=== PATIENT | female | born 1960 | race Caucasian/White ===

== ENCOUNTER → 2018-03-27 | Outpatient (CLI) | payer OTHER ==
[~2018-03-27] MED LIST: ANTIVERT25 MG PO; ASPIRIN81 MG PO; ATIVAN1 MG PO; ATORVASTATIN CA20 MG PO; CARAFATE1 GM PO; DEXILANT30 MG PO; DICYCLOMINE HCL10 MG PO; LIBRAX CAPSULE1 EACH PO; PHENERGAN PO; PROBIOTIC & AC1 EACH PO; RANITIDINE HCL300 M1 PO; TYLENOL PO; VITAMIN B-12 INJ IM; VITAMIN D1000 UNIT PO; ZANTAC150 MG PO
--- NOTE | 2018-03-27 10:52 | Diagnostic Imaging Report ---
PROCEDURE:US GALLBLADDER COMPARISON:None. INDICATIONS:RUQ Pain TECHNIQUE: Torres-scale and color Doppler transverse and longitudinal images of the right upper quadrant of the abdomen were obtained. FINDINGS: Liver: Measures 16.4 cm in right mid-clavicular line. Increased echogenicity. No masses. Main portal vein: Measures 1.0 cm with normal hepatopetal flow. Gallbladder: No stones or wall thickening. Common Bile Duct: Measures 0.3 cm Sonographic Xavier's sign: Negative Right kidney: Measures 10.3 x 3.9 x 3.6 cm. Normal echogenicity. No solid masses or hydronephrosis. Pancreas: Limited visualization Inferior vena cava: Limited visualization Aorta: Limited visualization Ascites: None in the right upper quadrant of the abdomen. CONCLUSION: Increased echogenicity within the liver compatible with steatosis. Kayden Gold D.O. Dictated by: Kayden Gold D.O. on 03/27/2018 at 9:08 Electronically approved by: Kayden Gold D.O. on 03/27/2018 at 9:08
--- NOTE | 2018-03-27 21:55 | Diagnostic Imaging Report ---
Hepatobiliary Scan with Gallbladder Ejection Fraction Clinical information: 58 F with diverticulitis and ulcerative colitis now with RUQ abdominal pain Report: Following intravenous administration of 7 millicuries of Tc-99m mebrofenin, dynamic images of the abdomen in the anterior projection were obtained through 36 minutes. Sincalide (CCK analog) 1.8 micrograms was administered intravenously over 30 minutes with additional imaging for determination of gallbladder ejection fraction. Perfusion to the liver is normal. Extraction of tracer from the blood pool by the liver parenchyma is normal. Tracer is seen promptly within the biliary tract. The gallbladder begins to fill by 8 minutes post-injection of tracer and fills adequately. Tracer is seen in the small bowel during the sincalide infusion. The gallbladder ejection fraction with administration of sincalide is 44% (normal greater than 40%). Impression: 1. Filling of the gallbladder excludes the diagnosis of acute cystic duct obstruction/acute cholecystitis. 2. Normal gallbladder ejection fraction of 44% does not support the clinical diagnosis of chronic cholecystitis/gallbladder dyskinesia. Signed by: Dr. Nuzhat Mendieta M.D. on 03/27/2018 9:52 PM
== END ==
LOC: US 08:11
PROVIDERS: ATTEND Internal Medicine Gastroenterology
DX: R10.11 Right upper quadrant pain (principal)
CPT/HCPCS: 76705; 78227; A9537

== ENCOUNTER → 2018-07-26 | Day surgery (SDC) | payer OTHER ==
[2018-07-22 13:28] LABS: BASOPHILS # (AUTO) 0.1 (0.0-0.1); BASOPHILS % 0.4 % (0.0-1.0); EOSINOPHILS # (AUTO) 0.3 (0.0-0.4); EOSINOPHILS % 1.9 % (0.0-6.0); HEMATOCRIT 51.8 % (34.2-44.1); HEMOGLOBIN 16.7 g/dL (12.0-16.0); LYMPHOCYTES # (AUTO) 6.4 (1.0-3.2); LYMPHOCYTES % 39.6 % (18.0-39.1); MEAN CORPUSCULAR HEMOGLOBIN 31.5 pg (28-32); MEAN CORPUSCULAR HGB CONC 32.2 g/dL (31-35); MEAN CORPUSCULAR VOLUME 97.6 fL (81-99); MONOCYTES # (AUTO) 1.2 (0.2-0.8); MONOCYTES % 7.6 % (4.4-11.3); NEUTROPHILS # (AUTO) 8.1 (2.1-6.9); NEUTROPHILS % 50.3 % (38.7-80.0); PLATELET COUNT 325 x10e3/uL (140-360); RED BLOOD COUNT 5.31 x10e6/uL (3.6-5.1); RED CELL DISTRIBUTION WIDTH 13.3 % (11.7-14.4)
[2018-07-22 14:36] LABS: EOSINOPHILS % (MANUAL) 2 % (0-7); LYMPHOCYTES % (MANUAL) 29 % (19-48); MONOCYTES % (MANUAL) 5 % (3.4-9.0); NEUTROPHILS % (MANUAL) 53 % (40-74)
[2018-07-22 14:39] LABS: PLATELET ESTIMATE ADEQUATE; PLATELET MORPHOLOGY COMMENT NORMAL; RBC MORPHOLOGY COMMENT NORMAL
[~2018-07-26] MED LIST changes: +CARAFATE1 GM/10 ML PO; +FENTANYL CITRATE/PF 100MCG/2 ML INJ ONE; +FRANKINSENSE; +LIDOCAINE HCL 2% LOCAL INJ 5 ML SDV VIAL INJ ONE; +MIDAZOLAM HCL 2 MG/2 ML VIAL ONE; +PROPOFOL IV EMULSION 10 MG/ML 20 ML VIAL ONE; +VIT B12 PO; +VIT D3
[2018-07-26 12:42] LABS: BASOPHILS # (AUTO) 0.1 (0.0-0.1); BASOPHILS % 0.5 % (0.0-1.0); EOSINOPHILS # (AUTO) 0.3 (0.0-0.4); EOSINOPHILS % 2.3 % (0.0-6.0); HEMATOCRIT 46.4 % (34.2-44.1); HEMOGLOBIN 15.2 g/dL (12.0-16.0); LYMPHOCYTES # (AUTO) 5.4 (1.0-3.2); LYMPHOCYTES % 39.6 % (18.0-39.1); MEAN CORPUSCULAR HGB CONC 32.8 g/dL (31-35); MEAN CORPUSCULAR VOLUME 94.7 fL (81-99); MONOCYTES % 7.6 % (4.4-11.3); NEUTROPHILS # (AUTO) 6.8 (2.1-6.9); NEUTROPHILS % 49.8 % (38.7-80.0); PLATELET COUNT 226 x10e3/uL (140-360); RED CELL DISTRIBUTION WIDTH 13.3 % (11.7-14.4)
[2018-07-26 13:31] LABS: EOSINOPHILS % (MANUAL) 3 % (0-7); LYMPHOCYTES % (MANUAL) 40 % (19-48); MONOCYTES % (MANUAL) 8 % (3.4-9.0); NEUTROPHILS % (MANUAL) 49 % (40-74); PLATELET ESTIMATE ADEQUATE; PLATELET MORPHOLOGY COMMENT NORMAL; RBC MORPHOLOGY COMMENT NORMAL
--- NOTE | 2018-07-26 23:23 | Operative Report ---
DATE OF PROCEDURE: July 26, 2018 REFERRING PHYSICIAN: Dr. Jose Tsai. PROCEDURE PERFORMED: Esophagogastroduodenoscopy with esophageal dilatation and biopsies. INDICATIONS FOR ESOPHAGOGASTRODUODENOSCOPY: Dysphagia. MEDICATION: Patient was done under MAC. Please see anesthesiologist's note. PROCEDURE: With the patient in left lateral decubitus position, a flexible fiberoptic Olympus gastroscope was introduced into the esophagus under direct visualization without any difficulty. There was some patchy erythema noted in distal esophagus. There was some patchy nodularity noted at the GE junction that was biopsied. Esophagus was then dilated to size 52-Bolivian Wilson. The scope was then advanced with ease into the stomach traversing a small sliding hiatal hernia. Mucosa overlying the antrum and the body revealed some diffuse erythema and moderate edema and biopsies were obtained and sent to stain for H. pylori. Pylorus appeared to be of normal contour and shape, was intubated with ease and the scope was advanced all the way to the 2nd portion of the duodenum. Biopsies were obtained from the proximal 2nd portion and the duodenal bulb to rule out sprue. The scope was then withdrawn back into the stomach and retroflexed and the mucosa overlying the fundus and cardia appeared to be within normal limits. The scope was then straightened out and was subsequently withdrawn. Patient tolerated the procedure well. IMPRESSION 1. Distal esophagitis, mild. 2. Patchy nodularity gastroesophageal junction, biopsied. 3. Esophagus dilated to size 52-Bolivian Wilson. 4. Small sliding hiatal hernia. 5. Gastritis, biopsied. Biopsies sent to stain for Helicobacter pylori. 6. Rule out sprue. PLAN: Follow up histology. Increase Dexilant to 60 mg 1 p.o. a.c. b.i.d. Job#: [id number] GAU cc:DR. JOSE TSAI
--- OUTSIDE RECORDS SUMMARY | 2018-07-28 15:10 | XMS REPORT ---
Author [facility] Address Unknown Phone Unavailable Care Team Providers Care Raw Scales Operator Name Role Phone JUAN MANUEL VYAS Unavailable Unavailable JOSE TSAI Unavailable Unavailable Payers Payer Name Policy Type Policy Number Effective Date Expiration Date Problems This patient has no known problems. Allergies, Adverse Reactions, Alerts Allergy Name Allergy Type Status Severity Reaction(s) Onset Date Inactive Date Treating Clinician Comments butorphanol tartrate DA Active AR 2016-04-20 00:00:00 metaproterenol sulfate DA Active AR 2016-04-20 00:00:00 metoclopramide HCl DA Active 2016-04-20 00:00:00 codeine DA Active AR 2016-04-20 00:00:00 naproxen DA Active AR 2016-04-20 00:00:00 Medications This patient has no known medications. Results Test Description Test Time Test Comments Text Results Atomic Results Result Comments HEPTOBILIARY W PHARM 2018-03-27 21:50:00 [facility] [address] [place], [place] [address] Patient Name: GEOVANI BEARD MR #: [id number] : 1960 Age/Sex: 57/F Req #: [id number] [facility] Physician: Ordered by: JUAN MANUEL VYAS MD Report #: [id number] Location: Room/Bed: Procedure: [id number] NM/HEPTOBILIARY W PHARM Exam Date: 03/27/18 Exam Time: 0845 REPORT STATUS: Signed Hepatobiliary Scan with Gallbladder Ejection Fraction Clinical information: 58 F with diverticulitis and ulcerative colitis now with RUQ abdominal pain Report: Following intravenous administration of 7 millicuries of Tc-99m mebrofenin, dynamic images of the abdomen in the anterior projection were obtained through 36 minutes. Sincalide (CCK analog) 1.8 micrograms was administered intravenously over 30 minutes with additional imaging for determination of gallbladder ejection fraction. Perfusion to the liver is normal. Extraction of tracer from the blood pool by the liver parenchyma is normal. Tracer is seen promptly within the biliary tract. The gallbladder begins to fill by 8 minutes post-injection of tracer and fills adequately. Tracer is seen in the small bowel during the sincalide infusion. The gallbladder ejection fraction with administration of sincalide is 44% (normal greater than 40%). Impression: 1. Filling of the gallbladder excludes the diagnosis of acute cystic duct obstruction/acute cholecystitis. 2. Normal gallbladder ejection fraction of 44% does not support the clinical diagnosis of chronic cholecystitis/gallbladder dyskinesia. Signed by: Dr. Lyla Mendieta M.D. on 03/27/2018 9:52 PM Dictated By: LYLA MENDIETA MD 51 Transcribed By: RAMONITA on 03/27/182151 COPY TO: JUAN MANUEL VYAS MD GALLBLADDER 2018-03-27 09:08:00 [place] [address] Patient Name: GEOVANI BEARD MR #: [id number] : 1960 Age/Sex: 57/F Req #: [id number] Adm Physician: Ordered by: JUAN MANUEL VYAS MD Report #: [id number] Location: Room/Bed: Procedure: [id number] US/US GALLBLADDER Exam Date: 03/27/18 Exam Time: 0839 REPORT STATUS: Signed PROCEDURE: US GALLBLADDER COMPARISON: None. INDICATIONS: RUQ Pain TECHNIQUE: Torres-scale and color Doppler transverse and longitudinal images of the right upper quadrant of the abdomen were obtained. FINDINGS: Liver: Measures 16.4 cm in right mid-clavicular line. Increased echogenicity. No masses. Main portal vein: Measures 1.0 cm with normal hepatopetal flow. Gallbladder: No stones or wall thickening. Common Bile Duct: Measures 0.3 cm Sonographic Xavier's sign: Negative Right kidney: Measures 10.3 x 3.9 x 3.6 cm. Normal echogenicity. No solid masses or hydronephrosis. Pancreas: Limited visualization Inferior vena cava: Limited visualization Aorta: Limited visualization Ascites: None in the right upper quadrant of the abdomen. CONCLUSION: Increased echogenicity within the liver compatible with steatosis. Be oGld D.O. Dictated by: Be Gold D.O. on 03/27/2018 at 9:08 Electronically approved by: Be Gold D.O. on 03/27/2018 at 9:08 Dictated By: BE GOLD DO 09 Transcribed By: SEN on 03/27/18 09 COPY TO: JUAN MANUEL VYAS MD CERVICAL SPINE 4 OR 5 VIEWS [place] [address] Patient Name: GEOVANI BEARD MR #: [id number] : 1960 Age/Sex: 57/F Req #: [id number] Adm Physician: Ordered by: QUIN BANUELOS, JOSE Wang MD Report #: [id number] Location: RAD Room/Bed: Procedure: [id number] DX/CERVICAL SPINE 4 OR 5 VIEWS Exam Date: 05/29/17 Exam Time: 1130 REPORT STATUS: Signed PROCEDURE: C-SPINE COMPLETE COMPARISON: None. INDICATIONS: CERVICAL SPINE PAIN FINDINGS: The cervical spine is visualized from the skull base to the bottom of C6 on the lateral radiograph, with suboptimal visualization of the cervicothoracic junction. No acute, displaced fracture or subluxation. Soft tissue, ligamentous, and spinal cord abnormalities cannot be excluded on the basis of plain radiography. Mild degenerative disc changes at C3-4, C4-5, and C5-6. Neural foramina are widely patent as seen on the oblique radiographs. Mild degenerative changes of the atlantoaxial articulation which is otherwise intact. Prevertebral soft tissues are of normal thickness. CONCLUSION: Suboptimal examination with nonvisualization of the cervicothoracic junction. Mild multilevel degenerative disc changes of the cervical spine. Dictated by: Maynor Gamez M.D. on 05/29/2017 at 12:45 Electronically approved by: Maynor Gamez M.D. on 05/29/2017 at 12:45 Dictated By: MAYNOR GAMEZ MD 1245 Transcribed By: SEN on 05/29/17 1245 COPY TO: JOSE TSAI
== END | disposition home or self-care (01) ==
LOC: OR 11:56
PROVIDERS: ATTEND Internal Medicine Gastroenterology
DX: K21.0 Gastro-esophageal reflux disease with esophagitis (principal); K29.50 Unspecified chronic gastritis without bleeding; K29.60 Other gastritis without bleeding; K31.89 Other diseases of stomach and duodenum; K44.9 Diaphragmatic hernia without obstruction or gangrene; R19.7 Diarrhea, unspecified; G47.33 Obstructive sleep apnea (adult) (pediatric); E55.9 Vitamin D deficiency, unspecified; E53.8 Deficiency of other specified B group vitamins; F17.210 Nicotine dependence, cigarettes, uncomplicated; Z88.6 Allergy status to analgesic agent; Z88.8 Allergy status to other drugs, medicaments and biological substances; Z01.810 Encounter for preprocedural cardiovascular examination; Z01.812 Encounter for preprocedural laboratory examination; Z79.82 Long term (current) use of aspirin; Z68.31 Body mass index [BMI] 31.0-31.9, adult
CPT/HCPCS: 36415 ×2; 43239; 43450; 82607; 85025 ×2; 93005; J2001; J2250; J2704

== ENCOUNTER 2018-10-22 16:23 | Observation (INO) | payer OTHER ==
[~2018-10-22] VITALS: Ht 167.6 cm; Wt 86.2 kg
[~2018-10-22 16:23] MED LIST changes: -FENTANYL CITRATE/PF 100MCG/2 ML INJ ONE; -LIDOCAINE HCL 2% LOCAL INJ 5 ML SDV VIAL INJ ONE; -MIDAZOLAM HCL 2 MG/2 ML VIAL ONE; -PROPOFOL IV EMULSION 10 MG/ML 20 ML VIAL ONE; -VIT B12 PO; +VIT B12 SQ; -VIT D3; +VIT D3 PO
--- NOTE | 2018-10-22 16:45 | NUR ---
RECEIVED PT AMBULATORY FROM [facility] WITH STEADY GAIT. PATIENT GOWNED AND PLACED ON MONITOR
[2018-10-22] MEDS ORDERED: ACETAMINOPHEN/CODEINE ELIX 120-12 MG/5 ML UDC PO ONE ×2 (17:00→22:00)
[2018-10-22 17:06] LABS: CLARITY,URINE SL CLOUDY (CLEAR); COLOR,URINE YELLOW (YELLOW)
[2018-10-22 17:07] LABS: BILIRUBIN,URINE NEGATIVE (NEGATIVE); KETONES,URINE NEGATIVE (NEGATIVE); LEUKOCYTE ESTERASE ,URINE 2+ (NEGATIVE); NITRITE,URINE POSITIVE (NEGATIVE); PROTEIN,URINE DIPSTICK NEGATIVE (NEGATIVE); URINE UROBILINOGEN 0.2 mg/dL (0.2 - 1)
[2018-10-22 17:17] LABS: BACTERIA,URINE MANY /HPF; WBC,URINE (MAN) 21-50 /HPF (0-5)
[2018-10-22] MEDS ORDERED: CEFTRIAXONE SOD 1 GM VIAL IV ONE (17:30)
[2018-10-22 18:21] LABS: BASOPHILS # (AUTO) 0.1 (0.0-0.1); BASOPHILS % 0.3 % (0.0-1.0); EOSINOPHILS # (AUTO) 0.3 (0.0-0.4); EOSINOPHILS % 1.8 % (0.0-6.0); HEMATOCRIT 45.2 % (34.2-44.1); HEMOGLOBIN 15.1 g/dL (12.0-16.0); LYMPHOCYTES # (AUTO) 5.7 (1.0-3.2); LYMPHOCYTES % 34.5 % (18.0-39.1); MEAN CORPUSCULAR HEMOGLOBIN 31.7 pg (28-32); MEAN CORPUSCULAR HGB CONC 33.4 g/dL (31-35); MEAN CORPUSCULAR VOLUME 94.8 fL (81-99); MONOCYTES # (AUTO) 1.1 (0.2-0.8); MONOCYTES % 6.9 % (4.4-11.3); NEUTROPHILS # (AUTO) 9.4 (2.1-6.9); NEUTROPHILS % 56.3 % (38.7-80.0); PLATELET COUNT 166 x10e3/uL (140-360); RED BLOOD COUNT 4.77 x10e6/uL (3.6-5.1); RED CELL DISTRIBUTION WIDTH 13.2 % (11.7-14.4)
[2018-10-22 18:43] LABS: ALANINE AMINOTRANSFERASE 12 IU/L (0-55); ALBUMIN 3.7 g/dL (3.5-5.0); ALBUMIN/GLOBULIN RATIO 1.1 (0.8-2.0); ALKALINE PHOSPHATASE 102 IU/L (40-150); ANION GAP 17.6 mmol/L (8-16); BLOOD UREA NITROGEN 7 mg/dL (7-26); BUN/CREATININE RATIO 9 (6-25); CALCIUM 9.3 mg/dL (8.4-10.2); CARBON DIOXIDE 21 mmol/L (22-29); CHLORIDE 103 mmol/L (98-107); CREATININE, SERUM 0.77 mg/dL (0.57-1.11); EST GLOMERULAR FILTRATION RATE > 60 ML/MIN (60-); GLUCOSE 99 mg/dL (74-118); POTASSIUM 4.6 mmol/L (3.5-5.1); SODIUM 137 mmol/L (136-145)
[2018-10-22 20:59] LABS: EOSINOPHILS % (MANUAL) 1 % (0-7); LYMPHOCYTES % (MANUAL) 28 % (19-48); MONOCYTES % (MANUAL) 7 % (3.4-9.0); NEUTROPHILS % (MANUAL) 54 % (40-74); PLATELET ESTIMATE ADEQUATE; PLATELET MORPHOLOGY COMMENT MOD EDTA CLUMPING; RBC MORPHOLOGY COMMENT NORMAL; SMUDGE CELLS FEW
--- NOTE | 2018-10-22 21:28 | Diagnostic Imaging Report ---
History: Difficulty swallowing. Comparison studies: None Technique: Axial, coronal and sagittal images from the skull base to the thoracic inlet. Coronal and sagittal images reconstructed from the axial data. Dose modulation, iterative reconstruction, and/or weight based adjustment of the mA/kV was utilized to reduce the radiation dose to as low as reasonably achievable. Intravenous contrast: 100 cc of Isovue 370. Findings: Soft tissues: Large bridging anterior vertebral osteophyte at C4-C5, C5-C6 and C6-C7 results in mass effect on the prevertebral soft tissues and aerodigestive tract at this level (best seen in image 65, series 3; image 50, series 3). Minimal narrowing of the airway at level C4-C5, otherwise airway is patent. There is a 6 mm pocket of air outpouching in the right dorsal lateral aspect of the trachea may represent a diverticulum. Lymph nodes: No radiographically significant adenopathy. Vessels: Arteries and veins are patent. Glands : Bilateral submandibular glands are normal in size and symmetric. No masses. Thyroid: Heterogeneous nodule approximately measures 1.9 x 1.4 x 1.9 cm (SAT) in the isthmus of the thyroid gland. Parotid: 9 mm well-circumscribed rounded homogeneously hyperdense lesion in the superficial lobe of left parotid gland may represent intraparotid lymph node or soft tissue neoplasm like pleomorphic adenoma. Orbits: No abnormalities. Paranasal sinuses: Clear. Temporal bones: No abnormalities. Skull base and facial bones: Intact. Cervical spine: Multilevel degenerative disc disease from C3-C4 to C7-T1, particularly with large anterior vertebral bridging osteophyte at level C4-C5, C5-C6 and C6-C7. C3-C4: Posterior disc osteophyte complex without significant canal stenosis. Mild left foraminal stenosis due to facet and uncovertebral arthrosis. Incidental findin mm calcified nodule in left lung parenchyma. 3 mm calcified left hilar node. IMPRESSION: 1. Large bridging anterior vertebral osteophyte at C4-C5, C5-C6 and C6-C7 results in mass effect on the prevertebral soft tissues and aerodigestive tract. 2. A 1.9 cm heterogeneous nodule in the isthmus of the thyroid gland. Consider follow-up with nonemergent thyroid ultrasonogram, if previous workup has not been done. 3. Incidental 9 mm nodular lesion in left parotid gland may represent intraparotid lymph node or soft tissue neoplasm like pleomorphic adenoma. 4. Cervical spondylosis as detailed above. Signed by: Dr. Anitha Campbell M.D. on 10/22/2018 9:25 PM
[2018-10-22] MEDS: PHENAZOPYRIDINE HCL 100 MG TAB PO NR ×2 (21:43→22:21)
[2018-10-22] MEDS ORDERED: ACETAMINOPHEN/CODEINE ELIX 120-12 MG/5 ML UDC NG ONE (22:00)
[2018-10-22] MEDS ORDERED: GABAPENTIN100 MG PO (22:28)
[2018-10-22] MEDS ORDERED: ACETAMINOPHEN/CODEINE ELIX 120-12 MG/5 ML UDC PO PRN (23:00)
[2018-10-22 23:29] VITALS: BP 136/78
[2018-10-22 23:56] VITALS: BP 136/78
[2018-10-23] VITALS (7 sets, daily range): BP systolic 106–133; BP diastolic 51–61
[2018-10-23] MEDS ORDERED: NICOTINE 14 MG/EA PATCH TOP ONE
[2018-10-23] MEDS ORDERED: IOPAMIDOL 370 MG/ML 200 ML INFUS..BTL INJ ONE (06:03)
[2018-10-23] MEDS ORDERED: SODIUM CHLORIDE 0.9% 50ML 50 ML ONE (06:03)
[2018-10-23] MEDS: NICOTINE 14 MG/EA PATCH TOP SCH (09:16)
--- NOTE | 2018-10-23 10:16 | Diagnostic Imaging Report ---
Examination: Barium swallow Technique: Effervescent crystals and barium were ingested by mouth and multiple fluoroscopic spot images of the esophagus and stomach were obtained. Comparison examination: CT 10/22/2018; barium swallow from 2012 Fluoroscopy time: 1.2 minutes Air Kerma: 44.3 mGy Findings: Informed sinuses and valleculae are symmetric. Normal esophageal mucosa, peristalsis, and distensibility. Gastroesophageal junction: Small sliding hiatal hernia is again noted. No gastroesophageal reflux. Proximal stomach: Unremarkable. Impression: Small sliding-type hiatal hernia. Otherwise unremarkable barium swallow. Signed by: Dr. Renzo Rose M.D. on 10/23/2018 10:13 AM
--- NOTE | 2018-10-23 13:11 | Diagnostic Imaging Report ---
LEFT FOOT - 3 Images HISTORY: Pain, rule out foreign body, possible glass COMPARISON: None available. FINDINGS: Bones: Diffusely decreased mineralization of the osseous structures limits bone detail. No acute displaced fracture. Moderate dorsal and small plantar calcaneal enthesophytes. Joints: Mild hallux valgus deformity. Mild degenerative changes of the first metatarsophalangeal joint. Soft tissues: No radiopaque foreign body. IMPRESSION: 1. No acute radiographic abnormality. 2. Specifically, no radiopaque foreign body. Signed by: Dr. Tien Teague D.O., M.M.M. on 10/23/2018 1:07 PM
--- NOTE | 2018-10-23 15:01 | NUR ---
CASE MANAGEMENT ASSESSMENT Regulatory Services Consultant to bedside to discuss plan of care with patient/family. CM/SW role and care transitions discussed. Anticipated discharge plan discussed along with duration of care. CM/SW discussed patients right to make decisions in care. CM/SW work hours given. Patient lives: with Darrel Admit/Transfer: thru ED Hospital/ER visits since last admit: last hospitalization in May 2018 at [facility]; 0 ED visits since then POA/Emergency contact: Darrel Horan [phone] Current/Previous Home Health: none PCP/Follow-up Care: Dr. Mendez Pinedo; pt was advised to follow up with a physician within 7 days of discharge. Current/Previous DME: has walker, rollator, shower chair, cane, CPAP Medications (referring to index hospitalization or the first time you were in the hospital) a. Were changes made in your medications when you were in the hospital on [date of index hospitalization]? no b. Did you understand the changes? n/a c. Were you able to obtain your new medications right away? n/a d. Were you able to take your medications like the doctor wanted you to? n/a e. Did the hospital give you an accurate, easy to understand list of medications when you left? n/a Scale of 1-10 how comfortable does patient feel with disease management in outpatient settin Other Services: previously did outpatient therapy at [facility] x 8 visits Employment Status: unemployed Areas of Concerns: weakness, loss of balance at times, dysphagia Referral Needs: may need home health Education Needs: medical management IMM/EGAN given and signed (if applicable): n/a Goal for discharge: home CM/SW left business card at the bedside with contact information. Name and number was also written on the patients whiteboard. Patient verbalized understanding of discussion. CM will follow-up with ongoing discharge and transition of care needs.
--- NOTE | 2018-10-23 16:11 | Diagnostic Imaging Report ---
EXAM: Modified barium swallow with Speech Pathologist INDICATION: ^dysphagia ^20181023 ^1220 COMPARISON: None available. RADIATION DOSE: Fluoroscopy Time: 1.3 min Air Kerma (AK) value has been reviewed. It is below the limits set by the Radiation Protocol Committee (RPC) committee. FINDINGS: See impression IMPRESSION: No evidence of penetration or aspiration. Please see speech pathology report for detailed description and recommendations. Signed by: Dr. Renzo Rose M.D. on 10/23/2018 4:08 PM
[2018-10-23] MEDS ORDERED: CEFTRIAXONE SOD 1 GM/NS 50 ML 50 ML IV SCH (20:00)
[2018-10-23] MEDS ORDERED: SODIUM CHLORIDE 0.9% 250ML 250 ML ONE (21:09)
--- NOTE | 2018-10-23 21:26 | Consultation ---
DATE OF CONSULTATION: October 23, 2018 HOSPITAL CONSULTATION HISTORY OF PRESENT ILLNESS: I was kindly asked to see this 58-year-old woman for evaluation of dysphagia. She has a 4- to 5-year history of difficulty swallowing, which has been evaluated by Dr. Nilo Buck in the past and has been treated with cervical esophageal dilation which she reports is required approximately every year to every year and a half. She recently developed a tooth cavity which was treated by her dentist along with oral cavity deep cleaning. She subsequently developed an abscess, which was drained by her dentist and treated with Peridex mouthwash and PO antibiotics. She reports that in the 2 weeks since starting the Peridex mouthwash that she has had a dramatic increase in her level of dysphagia. She stopped using the Peridex, but had persistent symptoms of throat burning and burning in her tongue. She reports she swallows liquids without difficulty, but has difficulty with foods that has consistency of mashed potatoes and reports that she has a sensation that food getting stuck and points to the level of the larynx as the etiology. In addition, for foods like meats, she must first cut them into tiny pieces, then chew them well before she was able to swallow them. In addition, she has a history of vertigo, which has been evaluated by her neurologist and felt to be benign positional vertigo. She also has a history of hearing loss and uses hearing aids and has a history of ear fullness which is worse in the right ear. Over the last few weeks, she has had an increase in the amount of nasal and sinus secretions that has excessive phlegm on the back of her throat. PAST MEDICAL HISTORY AND PAST SURGICAL HISTORY: Reviewed in detail in the chart and is pertinent for history of inflammatory bowel disease. Workup since hospitalization included CT soft tissue of the neck which demonstrated a large bridging anterior cervical osteophyte at C4-5 and C5-6 and C6-7, which resulted in a mass effect on the prevertebral soft tissue and aerodigestive tract at this level. She was also noted to have a thyroid nodule in the thyroid isthmus which was 1.9 x 1.4 x 1.9 cm and a 9 mm circumcised hyperdense lesion in the superficial lobe of the left parotid gland. PHYSICAL EXAMINATION: The left pinna and external auditory canal were normal. The left tympanic membrane was hypomobile and mildly retracted. The right pinna and external auditory canal were normal. The right tympanic membrane was retracted and hypomobile. Intranasal examination showed an S-shaped nasal septal deviation with edema of the nasal mucosa and a moderate amount of thick mucus within the nasal cavity. Oral cavity examination showed 2+ to 3+ oral candidiasis on the dorsum of the tongue and a moderate postnasal drainage. There was no palpable cervical adenopathy. Specifically, the parotid mass and thyroid isthmus mass were not appreciated on physical examination. On fiberoptic diagnostic rhinoscopy, she had thick mucus within the nasal cavity. There was a nasal septal spur towards the left which was impinging on the left middle turbinate, but there was no active infection noted within the ostiomeatal complex. The nasopharynx had mild to moderate thick mucus. The base of tongue had significant lymphoid hyperplasia. She had a long soft palate and uvula which touched the base of her tongue. She had candidiasis on the base of tongue. She had moderate posterior commissure hypertrophy and erythema of the posterior commissure of the larynx. There was normal vocal cord motion. There were no masses. ASSESSMENT: 1. Dysphagia which is probably secondary to the osteophytes of her cervical spine as her baseline etiology for the last 5 years of dysphasia superimposed with oral candidiasis secondary to the antibiotics given for treatment of her dental abscess and the Peridex. 2. Vertigo, possibly of peripheral origin. 3. Thyroid mass. 4. Parotid mass. 5. Obstructive sleep apnea (patient is currently on continuous positive airway pressure). PLAN: 1. Diflucan 200 mg p.o. daily. 2. Nystatin swish, gargle and swallow q.4h. while awake. 3. Outpatient evaluation for thyroid and parotid mass .4. Outpatient evaluation for vertigo. 5. Cleared for discharge from otolaryngology standpoint. Thank you very much. Job#: [id number] DR ZAYAS
[2018-10-23] MEDS: NYSTATIN SUSPENSION 5 ML UDC PO SCH (23:59)
[2018-10-24] VITALS: BP 129/58
[2018-10-24 05:00] VITALS: BP 99/45
[2018-10-24 05:23] LABS: BASOPHILS % 0.4 % (0.0-1.0); EOSINOPHILS # (AUTO) 0.4 (0.0-0.4); EOSINOPHILS % 3.5 % (0.0-6.0); HEMATOCRIT 43.3 % (34.2-44.1); HEMOGLOBIN 14.4 g/dL (12.0-16.0); LYMPHOCYTES # (AUTO) 5.4 (1.0-3.2); LYMPHOCYTES % 50.8 % (18.0-39.1); MEAN CORPUSCULAR HEMOGLOBIN 31.2 pg (28-32); MEAN CORPUSCULAR HGB CONC 33.3 g/dL (31-35); MEAN CORPUSCULAR VOLUME 93.9 fL (81-99); MONOCYTES # (AUTO) 0.9 (0.2-0.8); MONOCYTES % 8.5 % (4.4-11.3); NEUTROPHILS # (AUTO) 3.9 (2.1-6.9); NEUTROPHILS % 36.6 % (38.7-80.0); PLATELET COUNT 285 x10e3/uL (140-360); RED BLOOD COUNT 4.61 x10e6/uL (3.6-5.1); RED CELL DISTRIBUTION WIDTH 13.2 % (11.7-14.4)
[2018-10-24 05:52] LABS: ANION GAP 14.8 mmol/L (8-16); BLOOD UREA NITROGEN 8 mg/dL (7-26); BUN/CREATININE RATIO 12 (6-25); CALCIUM 9.1 mg/dL (8.4-10.2); CARBON DIOXIDE 23 mmol/L (22-29); CHLORIDE 108 mmol/L (98-107); CREATININE, SERUM 0.67 mg/dL (0.57-1.11); EST GLOMERULAR FILTRATION RATE > 60 ML/MIN (60-); GLUCOSE 105 mg/dL (74-118); POTASSIUM 3.8 mmol/L (3.5-5.1); SODIUM 142 mmol/L (136-145)
[2018-10-24] MEDS: NYSTATIN SUSPENSION 5 ML UDC PO SCH ×2 (06:05→12:30)
[2018-10-24 06:51] LABS: EOSINOPHILS % (MANUAL) 1 % (0-7); LYMPHOCYTES % (MANUAL) 45 % (19-48); MONOCYTES % (MANUAL) 7 % (3.4-9.0); NEUTROPHILS % (MANUAL) 40 % (40-74); PLATELET ESTIMATE ADEQUATE; PLATELET MORPHOLOGY COMMENT NORMAL; RBC MORPHOLOGY COMMENT NORMAL
[2018-10-24 08:13] VITALS: BP 117/53
[2018-10-24] MEDS ORDERED: FLUCONAZOLE 100 MG TAB PO SCH (09:00)
[2018-10-24 09:40] VITALS: BP 117/53
--- NOTE | 2018-10-24 09:40 | NUR ---
Pt received resting in bed. Alert and oriented x4. Oriented to staff and surroundings. Encouraged to press call [employer]onez if help needed. All meds given as ordered. Call [employer]onez within reach. Emotional support given. Will monitor
[2018-10-24] MEDS: NICOTINE 14 MG/EA PATCH TOP SCH (09:41)
[2018-10-24 12:00] VITALS: BP 113/55
[2018-10-24] MEDS ORDERED: MACRODANTIN100 MG PO (12:38)
[2018-10-24] MEDS ORDERED: DIFLUCAN200 MG PO (12:38)
--- NOTE | 2018-10-24 12:47 | Discharge Summary ---
PRIMARY CARE DOCTOR: Dr. Jose Pinedo. FINAL DIAGNOSIS: Dysphagia, likely due to candidal esophagitis. SECONDARY DIAGNOSES 1. Large bridging anterior vertebral osteophyte, C4 through C7, resulting in mass effect on the prevertebral soft tissues and aerodigestive tract. 2. Thyroid mass. 3. Left parotid mass. 4. Gram-negative rods urinary tract infection. CONSULTANTS: Dr. Ibarra, ENT. PROCEDURES/STUDIES PERFORMED 1. Laryngoscope. 2. A modified barium swallow study. 3. Neck CT. HISTORY: Per H&P. HOSPITAL COURSE: Patient was admitted with dysphagia. The ER doctor spoke to Dr. Grimm, who reviewed the CT image and at this time he does not think that the osteophyte is causing her dysphagia. Patient was evaluated by Dr. Ibarra. Will go ahead and start Diflucan to complete a 3-week course. Patient also passed her modified barium swallow study. Patient will follow up with Dr. Ibarra and Dr. Grimm as an outpatient. As far as her UTI, patient received 2 doses of IV Rocephin here. She will go home on 5 more days of Macrobid. Of note, patient does have bilateral anterior cervical lymphadenopathy. Hopefully, this will get better after her thrush is treated. Dr. Ibarra will follow up with the patient in regards to her parotid mass. We will also arrange patient to follow up with utility aircrewman for her thyroid mass through her primary care doctor. Patient was seen and examined today. CONDITION ON DISCHARGE: Stable. DISCHARGE MEDICATIONS: Please see medication reconciliation form. EROS HALL M.D. Job#: [id number] TA cc:JOSE PINEDO MD,
--- NOTE | 2018-10-24 13:04 | NUR ---
Pt given discharge instruction regarding meds, diet, activities, and follow up appointment with PCP. Pt verbalized understanding of teaching. Leaving unit in wheelchair to private car
== END 2018-10-24 13:16 | disposition home or self-care (01) ==
LOC: ER 16:23 → INTOOBSV 22:39 → ERHOLD 22:39 → MED/SURG2 23:29
PROVIDERS: ADMIT Internal Medicine; ATTEND Internal Medicine
DX: B37.81 Candidal esophagitis (principal); R13.10 Dysphagia, unspecified; N39.0 Urinary tract infection, site not specified; M79.672 Pain in left foot; R59.0 Localized enlarged lymph nodes; K58.9 Irritable bowel syndrome, unspecified; F17.210 Nicotine dependence, cigarettes, uncomplicated; R42 Dizziness and giddiness; G47.33 Obstructive sleep apnea (adult) (pediatric); M25.78 Osteophyte, vertebrae; E07.9 Disorder of thyroid, unspecified; Z88.5 Allergy status to narcotic agent; Z88.8 Allergy status to other drugs, medicaments and biological substances
CPT/HCPCS: 36415 ×2; 70491; 73630; 74220; 74230; 80048; 80053; 81001; 83518; 85025 ×2; 87070; 87086; 87186; 92526 ×2; 92611; 99284; G0378 ×3; J0696 ×2; J7050; Q9967

== ENCOUNTER → 2018-10-30 | Outpatient (CLI) | payer OTHER ==
[~2018-10-30] MED LIST changes: +DIFLUCAN200 MG PO; +GABAPENTIN100 MG PO; +MACRODANTIN100 MG PO
--- NOTE | 2018-10-30 15:38 | Diagnostic Imaging Report ---
EXAMINATION: Thyroid ultrasound. CLINICAL HISTORY: Thyroid nodule COMPARISON: 02/22/2017. DISCUSSION: Transverse and longitudinal images of the thyroid were obtained utilizing grayscale and color Doppler modalities. Background thyroid parenchyma is homogenous. Right lobe measures 4.2 x 1.6 x 1.6 cm; left lobe measures 4.5 x 1.5 x 1.7 cm; isthmus measures 0.3 cm in thickness. Dominant nodules: Isthmus: 2.3 x 0.9 x 1.8 cm solid, isoechoic, wider than tall, smoothly marginated without echogenic foci (TR 3) Left lower pole: 1 x 0.6 x 0.7 cm solid, hypoechoic, wider than tall, smoothly marginated without echogenic foci (TR 4) Both above nodules have increased in size relative to 02/22/2017 Additional sub-5 mm nodules bilaterally. Incidentally noted hypoechoic structure in the left neck measuring 1.4 x 0.4 x 0.5 cm, likely a lymph node. IMPRESSION: Dominant nodules in the isthmus and left lobe have increased in size relative to 02/22/2017, and ultrasound-guided fine-needle aspiration should be considered if not are ready performed. Remaining nodules and probable left cervical lymph node may be assessed for stability by follow-up ultrasound in one year. Signed by: Dr. Renzo Rose M.D. on 10/30/2018 3:34 PM
== END ==
LOC: US 13:21
PROVIDERS: ATTEND Family Medicine
DX: E04.2 Nontoxic multinodular goiter (principal)
CPT/HCPCS: 76536

== ENCOUNTER → 2019-01-12 | Outpatient (CLI) | payer OTHER ==
--- NOTE | 2019-01-12 13:18 | Diagnostic Imaging Report ---
Date and Time: 01/12/2019 Procedure: Ultrasound-guided fine-needle aspiration of isthmic and left thyroid nodules automatic drill operator: Dr. Rose Pre-operative diagnosis: Suspicious isthmic and left thyroid nodules Post-operative diagnosis: Suspicious isthmic and left thyroid nodules Conscious Sedation: None The patient's heart rate and pulse oximetry were continuously monitored by the interventional radiology nurse. Blood pressure was monitored at 5 minute intervals. Additional Medications: Lidocaine 1% for local anesthesia Estimated blood loss: Minimal Blood products administered: None Specimens: Fine-needle aspiration specimens of thyroid nodules. Isthmic nodule x3, left thyroid nodule contrast times 5 Implants: None Condition at completion: Stable Disposition: Discharged home Complications: No immediate DISCUSSION: Informed consent was obtained and documented in the medical record after discussion of risks and benefits. The patient was placed in the supine position and the cervical region was prepped and draped in the standard sterile fashion. Attention was first turned to be small left thyroid nodule. A suitable percutaneous approach was identified and 1% lidocaine was infiltrated into the skin and subcutaneous tissues for local anesthesia. Then under continuous sonographic guidance a total of 5 fine needle aspiration specimens were obtained using 25-gauge needles. Specimens were submitted to on-site cytopathology personnel and adequacy was confirmed. Attention was then turned to the isthmic nodule. Again after a suitable percutaneous approach was identified and 1% lidocaine was infiltrated into the skin and subcutaneous tissues for local anesthesia. Then under continuous sonographic guidance a total of 3 fine-needle aspiration specimens were obtained using 25-gauge needles. Specimens were submitted to on-site cytopathology personnel and adequacy was confirmed. At the conclusion of sampling a sterile dressing was applied. The patient tolerated the procedure well without immediate complication. FINDINGS: Isthmic and left thyroid nodules. IMPRESSION: Successful ultrasound-guided fine-needle aspiration of isthmic and left thyroid nodules as above. Signed by: Dr. Renzo Rose M.D. on 01/12/2019 1:15 PM
== END ==
LOC: US 09:16
PROVIDERS: ATTEND Family Medicine
DX: E04.2 Nontoxic multinodular goiter (principal); R93.89 Abnormal findings on diagnostic imaging of other specified body structures
CPT/HCPCS: 10005; 10006; 88172; 88173

== ENCOUNTER → 2019-01-30 | Outpatient (CLI) | payer OTHER ==
--- NOTE | 2019-01-30 11:23 | Diagnostic Imaging Report ---
EXAMINATION: Renal ultrasound. CLINICAL HISTORY :UTI COMPARISON: <None available.> TECHNIQUE: Grayscale and color Doppler evaluation of the kidneys and bladder was performed in transverse and longitudinal planes. DISCUSSION: RIGHT KIDNEY: The right kidney measures 11.4 cm in length and shows normal echogenicity. No hydronephrosis, shadowing calculi or solid mass lesions. LEFT KIDNEY: The left kidney measures 11.2 cm in length and shows normal echogenicity. No hydronephrosis, shadowing calculi or solid mass lesions. BLADDER: Incompletely distended and poorly evaluated. Right and left ureteral jets are identified. IMPRESSION: Unremarkable sonographic appearance of the kidneys. Signed by: Dr. Renzo Rose M.D. on 01/30/2019 11:20 AM
--- NOTE | 2019-01-30 11:54 | Diagnostic Imaging Report ---
Exam: Abdominal film Clinical History: Urinary tract infection Comparison: None available DISCUSSION: Frontal view of the abdomen shows a nonobstructive bowel gas pattern with mild amount of retained stool.There are no dilated, air-filled loops of bowel. Multiple round pelvic calcifications likely represent phleboliths. No calcifications project over the renal shadows.Multilevel degenerative disc changes of the thoracolumbar spine. No acute osseous abnormality. IMPRESSION: 1. Nonobstructive bowel gas pattern. The staff physician below has personally reviewed this exam on the date of dictation. Signed by: Dr. Renzo Rose M.D. on 01/30/2019 11:50 AM
== END ==
LOC: US 10:28
PROVIDERS: ATTEND Urology
DX: N39.0 Urinary tract infection, site not specified (principal)
CPT/HCPCS: 74018; 76770

== ENCOUNTER 2019-02-22 16:49 | Emergency (ER) | payer OTHER ==
[~2019-02-22] VITALS: Ht 167.6 cm; Wt 86.2 kg
--- OUTSIDE RECORDS SUMMARY | 2019-02-22 16:53 | XMS REPORT | Continuity of Care Document ---
Author Author [facility] Interface Address Unknown Phone Unavailable Problems Problem Status Onset Date Classification Date Reported Comments Source Dysphagia Active Problem 10/24/2018 [facility] Medications Medication Details Route Status Patient Instructions Ordering Provider Order Date Source Lactobac Cmb #3/Fos/Pantethine (Probiotic & Acidophilus Cap) 1 Each Capsule, 1 Tab Oral Daily Active 07/22/2018 [facility] Lorazepam (Ativan) 1 Mg Tablet, 1 Mg Oral Daily Active 07/22/2018 [facility] Sucralfate (Carafate) 1 Gm Tablet, 1 Gm Oral Four Times Daily Active 07/22/2018 [facility] Vitamin B-12 Inj , Intramusc Wkly Active 07/22/2018 [facility] Chlordiazepoxide/Clidinium Br (Librax Capsule) 1 Each Capsule, Oral As Needed Active 03/14/2017 [facility] Cholecalciferol (Vitamin D3) (Vitamin D) 1,000 Unit Capsule, 1000 Mg Oral Daily Active 03/14/2017 [facility] Meclizine Hcl (Antivert) 25 Mg Tablet, 25 Mg Oral Daily Active 03/14/2017 [facility] Phenergan , 25 Mg Oral As Needed Active 03/14/2017 [facility] Tylenol , 500 Mg Oral As Needed Active 03/14/2017 [facility] Ranitidine Hcl 300 Mg Capsule, 300 Mg Oral Daily Active 11/04/2014 [facility] Atorvastatin Calcium 20 Mg Tablet, 20 Mg Oral Daily Active 10/28/2014 [facility] Dicyclomine Hcl 10 Mg Capsule, 10 Mg Oral Three Times A Day Active 10/28/2014 [facility] Aspirin 81 Mg Tab.chew Daily Active [facility] Dexlansoprazole (Dexilant) 30 Mg Deejay. Daily Active [facility] Fluconazole (Diflucan) 200 Mg Tablet Daily Active [facility] Frankinsense As Needed Active [facility] Gabapentin 100 Mg Capsule Three Times A Day Active [facility] Nitrofurantoin Macrocrystal (Macrodantin) 100 Mg Capsule Twice A Day Active [facility] Ranitidine Hcl (Zantac) 150 Mg Tablet Bedtime Active THERAPEUTICALLY SUBSTITUTED WITH PEPCID 20MG [facility] Sucralfate (Carafate) 1 Gm/10 Ml Oral.susp Four Times Daily Active [facility] Vit B12 .qmonth Active [facility] Vit D3 Weekly Active [facility] Allergies, Adverse Reactions, Alerts Substance Category Reaction Severity Reaction type Status Date Reported Comments Source Naproxen JITTERY Mild Allergy to Substance Active 07/20/2010 [facility] metoclopramide HCl ANXIETY/DEPRESSION Mild Allergy to Substance Active 10/14/2013 [facility] Metaproterenol JITTERY Mild Allergy to Substance Active 10/14/2013 [facility] Butorphanol HALLUCINATIONS Mild Allergy to Substance Active 10/14/2013 [facility] Codeine BAD HEADACHES Mild Propensity to adverse reactions Active 10/22/2018 [facility] Immunizations Immunization Date Given Site Status Last Updated Comments Source Results Order Name Results Value Reference Range Date Interpretation Comments Source Blood leukocytes automated count (number/volume) 10.66 4.8 - 10.8 10/24/2018 [facility] Blood erythrocytes automated count (number/volume) 4.61 3.6 - 5.1 10/24/2018 [facility] Blood hemoglobin measurement (moles/volume) 14.4 12.0 - 16.0 10/24/2018 [facility] Automated blood hematocrit (volume fraction) 43.3 34.2 - 44.1 10/24/2018 [facility] Automated erythrocyte mean corpuscular volume 93.9 81 - 99 10/24/2018 [facility] Automated erythrocyte mean corpuscular hemoglobin (mass per erythrocyte) 31.2 28 - 32 10/24/2018 [facility] Automated erythrocyte mean corpuscular hemoglobin concentration measurement (mass/volume) 33.3 31 - 35 10/24/2018 [facility] RDW BldCo-Rto 13.2 11.7 - 14.4 10/24/2018 [facility] Automated blood platelet count (count/volume) 285 140 - 360 10/24/2018 [facility] Automated blood segmented neutrophil count as percentage of total leukocytes 36.6 38.7 - 80.0 10/24/2018 [facility] Automated blood lymphocyte count as percentage ot total leukocytes 50.8 18.0 - 39.1 10/24/2018 [facility] Automated blood monocyte count as percentage of total leukocytes 8.5 4.4 - 11.3 10/24/2018 [facility] Automated blood eosinophil count as percentage of total leukocytes 3.5 0.0 - 6.0 10/24/2018 [facility] Automated blood basophil count as percentage of total leukocytes 0.4 0.0 - 1.0 10/24/2018 [facility] IM GRANULOCYTES % 0.2 0.0 - 1.0 10/24/2018 [facility] Automated blood neutrophil count 3.9 2.1 - 6.9 10/24/2018 [facility] Blood lymphocytes count (number/volume) 5.4 1.0 - 3.2 10/24/2018 [facility] Blood monocytes automated count (number/volume) 0.9 0.2 - 0.8 10/24/2018 [facility] Automated blood eosinophil count 0.4 0.0 - 0.4 10/24/2018 [facility] Automated blood basophil count (count/volume) 0.0 0.0 - 0.1 10/24/2018 [facility] Absolute Immature Granulocyte (auto 0.02 0 - 0.1 10/24/2018 [facility] Differential Total Cells Counted 100 10/24/2018 [facility] Manual blood neutrophils/100 leukocytes 40 40 - 74 10/24/2018 [facility] Manual blood lymphocytes/100 leukocytes 45 19 - 48 10/24/2018 [facility] Manual blood monocytes/100 leukocytes 7 3.4 - 9.0 10/24/2018 [facility] Manual blood eosinophil count as percentage of total leukocytes 1 0 - 7 10/24/2018 [facility] Blood lymphocytes variant count (number/volume) 7 10/24/2018 [facility] Blood platelets count by estimate (number/volume) ADEQUATE 10/24/2018 [facility] Platelet morphology NORMAL 10/24/2018 [facility] RBC morphology NORMAL 10/24/2018 [facility] Serum or plasma sodium measurement (moles/volume) 142 136 - 145 10/24/2018 [facility] Serum or plasma potassium measurement (moles/volume) 3.8 3.5 - 5.1 10/24/2018 [facility] Serum or plasma chloride measurement (moles/volume) 108 98 - 107 10/24/2018 [facility] Serum or plasma carbon dioxide, total measurement (moles/volume) 23 22 - 29 10/24/2018 [facility] Serum or plasma anion gap 14.8 8 - 16 10/24/2018 [facility] Serum or plasma urea nitrogen measurement (mass/volume) 8 7 - 26 10/24/2018 [facility] Serum or plasma creatinine measurement (mass/volume) 0.67 0.57 - 1.11 10/24/2018 [facility] Serum or plasma urea nitrogen/creatinine mass ratio 12 6 - 25 10/24/2018 [facility] Estimated glomerular filtration rate (GFR) determination > 60 60 10/24/2018 [facility] Glucose measurement 105 74 - 118 10/24/2018 [facility] Serum or plasma calcium measurement (mass/volume) 9.1 8.4 - 10.2 10/24/2018 [facility] Blood smudge cells detection by light microscopy FEW 10/22/2018 [facility] Serum or plasma total bilirubin measurement (mass/volume) 0.2 0.2 - 1.2 10/22/2018 [facility] Aspartate Amino Transf (AST/SGOT) 16 5 - 34 10/22/2018 [facility] Serum or plasma alanine aminotransferase measurement (enzymatic activity/volume) 12 0 - 55 10/22/2018 [facility] Serum or plasma protein measurement (mass/volume) 7.1 6.5 - 8.1 10/22/2018 [facility] Serum or plasma albumin measurement (mass/volume) 3.7 3.5 - 5.0 10/22/2018 [facility] Plasma globulin measurement (mass/volume) 3.4 2.3 - 3.5 10/22/2018 [facility] Serum or plasma albumin/globulin mass ratio 1.1 0.8 - 2.0 10/22/2018 [facility] Serum or plasma alkaline phosphatase measurement (enzymatic activity/volume) 102 40 - 150 10/22/2018 [facility] Streptococcus pyogenes antigen detection in throat NEGATIVE NEGATIVE 10/22/2018 [facility] Urine color determination YELLOW YELLOW 10/22/2018 [facility] Urine clarity SL CLOUDY CLEAR 10/22/2018 [facility] Specific gravity of Urine by Test strip 1.010 1.010 - 1.025 10/22/2018 [facility] Urine pH measurement by automated test strip 6 5 - 7 10/22/2018 [facility] Urine leukocyte esterase detection by dipstick 2+ NEGATIVE 10/22/2018 [facility] Urine nitrite detection POSITIVE NEGATIVE 10/22/2018 [facility] Urine protein measurement by test strip (mass/volume) NEGATIVE NEGATIVE 10/22/2018 [facility] Urine glucose detection NEGATIVE NEGATIVE 10/22/2018 [facility] Urine ketones detection by automated test strip NEGATIVE NEGATIVE 10/22/2018 [facility] Urine urobilinogen measurement by test strip (mass/volume) 0.2 0.2 - 1 10/22/2018 [facility] Urine total bilirubin measurement (mass/volume) NEGATIVE NEGATIVE 10/22/2018 [facility] Urine erythrocytes detection TRACE NEGATIVE 10/22/2018 [facility] Automated urine sediment leukocyte count by microscopy (number/high power field) 21-50 0 - 5 10/22/2018 [facility] Erythrocytes detection in urine sediment by light microscopy NONE 0 - 5 10/22/2018 [facility] Bacteria detection in urine sediment by light microscopy MANY NONE 10/22/2018 [facility] Epithelial cells detection in urine sediment by light microscopy NONE NONE 10/22/2018 [facility] Blood cobalamin (vitamin B12) measurement (mass/volume) 1166 213 - 816 07/26/2018 [facility] Bacterial urine culture Urine Culture [facility] Vital Signs Vital Sign Value Date Comments Source Encounters Location Location Details Encounter Type Encounter Number Reason For Visit Attending Provider ADM Date DC Date Status Source Registered Clinic [id number] JUAN MANUEL VYAS MD 03/27/2018 [facility] Registered Surgical Day Care [id number] JUAN MANUEL VYAS MD 07/26/2018 [facility] Admitted Inpatient (obs) [id number] EROS HALL MD 10/22/2018 [facility] Procedures Procedure Code Date Perfomer Comments Source Computed tomography of soft tissues of neck with contrast [id number] 10/22/2018 [facility] EGD BIOPSY SINGLE/MULTIPLE [id number] 07/26/2018 [facility] DILATE ESOPHAGUS 1/MULT PASS [id number] 07/26/2018 [facility] US Gallbladder [id number] 03/27/2018 ASAEL ROSSI [facility]
[2019-02-22 17:36] LABS: BILIRUBIN,URINE NEGATIVE (NEGATIVE); CLARITY,URINE CLEAR (CLEAR); COLOR,URINE YELLOW (YELLOW); KETONES,URINE NEGATIVE (NEGATIVE); LEUKOCYTE ESTERASE ,URINE TRACE (NEGATIVE); NITRITE,URINE NEGATIVE (NEGATIVE); PROTEIN,URINE DIPSTICK NEGATIVE (NEGATIVE); URINE UROBILINOGEN 0.2 mg/dL (0.2 - 1)
[2019-02-22 17:49] LABS: BASOPHILS % 0.3 % (0.0-1.0); EOSINOPHILS # (AUTO) 0.2 (0.0-0.4); EOSINOPHILS % 1.5 % (0.0-6.0); HEMATOCRIT 46.2 % (34.2-44.1); HEMOGLOBIN 15.8 g/dL (12.0-16.0); LYMPHOCYTES # (AUTO) 5.8 (1.0-3.2); LYMPHOCYTES % 41.3 % (18.0-39.1); MEAN CORPUSCULAR HEMOGLOBIN 31.9 pg (28-32); MEAN CORPUSCULAR HGB CONC 34.2 g/dL (31-35); MEAN CORPUSCULAR VOLUME 93.3 fL (81-99); MONOCYTES % 7.5 % (4.4-11.3); NEUTROPHILS # (AUTO) 6.9 (2.1-6.9); NEUTROPHILS % 49.2 % (38.7-80.0); PLATELET COUNT 233 x10e3/uL (140-360); RED BLOOD COUNT 4.95 x10e6/uL (3.6-5.1)
[2019-02-22 18:03] LABS: BACTERIA,URINE MODERATE /HPF; RBC,URINE 0-5 /HPF (0-5)
[2019-02-22 18:04] LABS: EPITHELIAL CELLS,URINE FEW /LPF
[2019-02-22 18:18] LABS: ALANINE AMINOTRANSFERASE 17 IU/L (0-55); ALBUMIN/GLOBULIN RATIO 1.1 (0.8-2.0); ALKALINE PHOSPHATASE 114 IU/L (40-150); AMYLASE 129 U/L (25-125); ANION GAP 17.9 mmol/L (8-16); BLOOD UREA NITROGEN 7 mg/dL (7-26); BUN/CREATININE RATIO 10 (6-25); CALCIUM 10.1 mg/dL (8.4-10.2); CARBON DIOXIDE 22 mmol/L (22-29); CHLORIDE 105 mmol/L (98-107); CREATININE, SERUM 0.68 mg/dL (0.57-1.11); EST GLOMERULAR FILTRATION RATE > 60 ML/MIN (60-); GLUCOSE 100 mg/dL (74-118); LIPASE 15 U/L (8-78); MAGNESIUM 2.3 MG/DL (1.3-2.1); POTASSIUM 3.9 mmol/L (3.5-5.1); SODIUM 141 mmol/L (136-145)
[2019-02-22 19:05] VITALS: BP 128/63
[2019-02-25] MEDS ORDERED: PROBIOTIC & AC1 EACH PO (10:45)
[2019-02-25] MEDS ORDERED: ATIVAN1 MG PO (10:46)
[2019-02-25] MEDS ORDERED: OXYBUTYNIN CHLOR5 MG PO (10:47)
== END 2019-02-22 19:12 | disposition home or self-care (01) ==
LOC: ER 16:49
DX: N30.20 Other chronic cystitis without hematuria (principal); R53.1 Weakness; M25.78 Osteophyte, vertebrae; K21.9 Gastro-esophageal reflux disease without esophagitis; K22.70 Barrett's esophagus without dysplasia; G62.9 Polyneuropathy, unspecified; G95.20 Unspecified cord compression; F17.210 Nicotine dependence, cigarettes, uncomplicated
CPT/HCPCS: 36415; 80053; 81001; 82150; 83690; 83735; 85025; 87086; 99283

== ENCOUNTER 2019-02-26 07:10 | Observation (INO) | payer OTHER ==
[2019-02-25 12:33] LABS: BASOPHILS # (AUTO) 0.1 (0.0-0.1); BASOPHILS % 0.4 % (0.0-1.0); EOSINOPHILS # (AUTO) 0.2 (0.0-0.4); EOSINOPHILS % 1.2 % (0.0-6.0); HEMATOCRIT 46.5 % (34.2-44.1); HEMOGLOBIN 15.6 g/dL (12.0-16.0); LYMPHOCYTES # (AUTO) 3.9 (1.0-3.2); LYMPHOCYTES % 31.6 % (18.0-39.1); MEAN CORPUSCULAR HEMOGLOBIN 31.5 pg (28-32); MEAN CORPUSCULAR HGB CONC 33.5 g/dL (31-35); MEAN CORPUSCULAR VOLUME 93.8 fL (81-99); MONOCYTES # (AUTO) 0.9 (0.2-0.8); MONOCYTES % 7.4 % (4.4-11.3); NEUTROPHILS # (AUTO) 7.3 (2.1-6.9); NEUTROPHILS % 59.1 % (38.7-80.0); PLATELET COUNT 322 x10e3/uL (140-360); RED BLOOD COUNT 4.96 x10e6/uL (3.6-5.1); RED CELL DISTRIBUTION WIDTH 12.9 % (11.7-14.4)
--- NOTE | 2019-02-25 12:42 | Diagnostic Imaging Report ---
EXAM: CHEST 2 VIEWS, PA and lateral DATE: 02/25/2019 Time stamp on exam: 11:45 AM INDICATION: Preoperative for surgery COMPARISON: None FINDINGS: LINES/TUBES: None LUNGS: No consolidations or edema. PLEURA: No effusions or pneumothorax. HEART AND MEDIASTINUM: Normal size and contour. BONES AND SOFT TISSUES: No acute findings. Degenerative spurring of the thoracic spine with flowing osteophytosis involving the lower segments. IMPRESSION: No acute thoracic abnormality. Signed by: Dr. Kayden Gold DO on 02/25/2019 12:39 PM
[2019-02-25 13:04] LABS: INR 0.94; PROTHROMBIN TIME 13.1 seconds (11.9-14.5)
[2019-02-25 13:08] LABS: ANION GAP 13.5 mmol/L (8-16); BLOOD UREA NITROGEN 10 mg/dL (7-26); BUN/CREATININE RATIO 14 (6-25); CALCIUM 9.6 mg/dL (8.4-10.2); CARBON DIOXIDE 24 mmol/L (22-29); CHLORIDE 106 mmol/L (98-107); EST GLOMERULAR FILTRATION RATE > 60 ML/MIN (60-); GLUCOSE 103 mg/dL (74-118); POTASSIUM 3.5 mmol/L (3.5-5.1); SODIUM 140 mmol/L (136-145)
[~2019-02-26] VITALS: Ht 167.6 cm; Wt 88.0 kg
[~2019-02-26 07:10] MED LIST changes: +OXYBUTYNIN CHLOR5 MG PO
[2019-02-26] MEDS ORDERED: CEFAZOLIN SOD 1 GM/NS 50ML 100 ML IV ONE (07:24)
[2019-02-26] MEDS ORDERED: ACETAMINOPHEN 1000 MG/100 ML 100 ML IV ONE (07:26)
[2019-02-26] MEDS ORDERED: LIDOCAINE HCL (LTA) 4 ML SOLN ONE (07:26)
[2019-02-26] MEDS ORDERED: IBUPROFEN 800MG/ 250ML 250 ML IV ONE (07:27)
[2019-02-26] MEDS ORDERED: BUPIVACAINE 0.5%/EPI 30 ML SDV INJ ONE (07:29)
[2019-02-26] MEDS ORDERED: GELATIN SPONGE 12-7MM ONE (07:29)
[2019-02-26] MEDS ORDERED: BACITRACIN 50,000 UNIT VIAL ONE (07:29)
[2019-02-26] MEDS ORDERED: THROMBIN FOR SOLN 5,000 UNIT VIAL ONE (07:29)
[2019-02-26] MEDS ORDERED: augmentin (08:21)
[2019-02-26] MEDS: LACTATED RINGER'S 1,000 ML IV SCH ×2 (10:18→17:50)
[2019-02-26] MEDS ORDERED: FENTANYL CITRATE/PF 100MCG/2 ML INJ ONE ×2 (10:25→17:42)
[2019-02-26] MEDS ORDERED: HYDROMORPHONE 2MG/ML 2 MG/ML ML IV PRN (10:30)
[2019-02-26] MEDS ORDERED: ONDANSETRON HCL INJ 2MG/ML 2ML 2 MG/ML VIAL IV PRN (10:30)
[2019-02-26] MEDS ORDERED: ACETAMINOPHEN 325 MG TAB PO PRN (10:30)
[2019-02-26] MEDS ORDERED: CEPACOL SORE THROAT LOZENGES PO PRN (10:30)
[2019-02-26] MEDS ORDERED: PROMETHAZINE HCL (IM) 25 MG/ML VIAL IM PRN (10:30)
[2019-02-26] MEDS ORDERED: ZOLPIDEM TARTRATE 5 MG TAB PO PRN (10:30)
[2019-02-26] MEDS ORDERED: LORAZEPAM 1 MG TAB PO SCH (10:30)
[2019-02-26] MEDS ORDERED: MAGNESIUM/ALUMINUM/SIMETHICONE 30 ML UDC PO PRN (10:30)
[2019-02-26] MEDS ORDERED: MORPHINE SULFATE 5 MG/ML VIAL IM PRN (10:30)
[2019-02-26] MEDS ORDERED: METOCLOPRAMIDE HCL 10 MG/2ML VIAL ONE (11:09)
--- NOTE | 2019-02-26 11:10 | Operative Report ---
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 POSTOPERATIVE DIAGNOSIS: C3-4 and C4-5 spondylosis with severe spinal stenosis and large anterior osteophyte with dysphagia. PROCEDURES: 1. C3-4 anterior cervical diskectomy and microsurgical osteophyte resection and allograft fusion. 2. C4-5 anterior cervical diskectomy, complete resection of anterior osteophyte, and allograft fusion. 3. Preparation of tricortical iliac crest allograft. 4. C3-4 and C4-5 anterior cervical fusion with Synthes CSLP plate, [id number]. ANESTHESIA: General. INDICATIONS: The patient is a 58-year-old woman, who presents with C3-4 and C4-5 spondylosis with severe stenosis at C3-4 and a large anterior osteophyte at C4-5, symptomatic with neck pain, gait disturbance, and swallowing problems. She was taken to the operating room for two-level anterior cervical decompression and fusion including resection of the large anterior osteophyte at C4-5. PROCEDURE IN DETAIL: After induction of general anesthesia, the patient was placed on the operating table in supine position. The right side of the neck was prepped and draped in sterile fashion. The fluoroscopic C-arm was positioned in cross-table lateral orientation. A transverse incision was created on the right side of neck superimposed over the C4 vertebral body as determined by fluoroscopy. The platysma was divided in line with the incision. A subplatysmal dissection was carried out and avascular plane dissection was developed medial to the sternocleidomastoid muscle and was followed medial to the carotid sheath to the anterior border of the cervical spine. The very large anterior osteophyte immediately came into view at C4-5, markedly elevating and compressing the posterior margin of the oropharynx. The deep cervical fascia was opened and the esophagus and oropharynx were retracted to the left. The anterior longitudinal ligament was resected. The large anterior osteophyte at C4-5 was thoroughly resected with a Leksell rongeur. The attachments of longus colli muscles to the anterolateral aspects of the vertebral bodies of C3, C4, and C5 were divided. Kingston posts were inserted into C3 and C5 and the Kingston distractor was used to distract both disk spaces simultaneously. The operating microscope was brought in. The contents of both disks were thoroughly evacuated with angled curettes and pituitary rongeurs. The posterior osteophytes were meticulously drilled with a 2 mm cutting bur on a high-speed drill until they were completely removed. The posterior annulus of the disk, herniated disk material, and the posterior longitudinal ligament were resected layer by layer until the dura was fully exposed and decompressed. The medial aspects of the uncinate processes were resected bilaterally to further expose any compressed origins of the corresponding nerve roots. After satisfactory decompression had been achieved, the endplates were prepared for fusion. Two pieces of tricortical iliac crest allografts were cut to the size and shapes of the disk spaces and were inserted into disk spaces under distraction and fluoroscopic guidance. The distraction was released and distraction posts were removed. The Synthes CSLP variable type anterior cervical plate measuring 37 mm was selected and was affixed to vertebral bodies of C3, C4, and C5 with three pairs of screws. The screws at C3 were 4.35 mm in diameter and 16 mm in length. The screws at C4 and C5 were 4.35 mm in diameter and 14 mm in length. All screw holes were drilled on the lateral fluoroscopic guidance. All screws were locked with the appropriate locking screws. An excellent construct was obtained. The wound was copiously irrigated with bacitracin solution. Meticulous hemostasis was secured. The retractor was removed. The platysma was closed with 3-0 Vicryl sutures after a Hemovac drain had been placed over the plate and brought through a separate stab incision. The skin was closed with 4-0 Monocryl sutures in subcuticular fashion. Steri-Strips and dressing were applied. The patient was awakened, extubated, and taken to the postanesthesia care unit in stable condition. No intraoperative complications were encountered. Estimated blood loss was 30 mL. Michael Grimm MD [facility] /[id number]
--- NOTE | 2019-02-26 11:35 | NUR ---
patient arrived from PACU, fully awake and alertx3. Patient was able to ambulate to the bed with standyby assistance. C-collar in place, anterior dressing intact and hemovac in place. Patient oriented to new surroundings, POC and call ordonez within reach.
[2019-02-26 11:58] VITALS: BP 128/61
[2019-02-26 12:00] VITALS: BP 128/61
[2019-02-26] MEDS ORDERED: LORAZEPAM 0.5 MG TAB PO PRN (12:30)
[2019-02-26] MEDS: SUCRALFATE 1 GM/10 ML SUSP PO SCH ×3 (12:56→21:13)
[2019-02-26] MEDS: CEFAZOLIN SOD 1 GM/NS 50ML 50 ML IV SCH ×2 (13:18→21:13)
[2019-02-26] MEDS: GABAPENTIN 100 MG CAP PO SCH ×2 (13:56→21:13)
--- NOTE | 2019-02-26 14:00 | NUR ---
Dr. Champion aware of consult.
--- NOTE | 2019-02-26 14:15 | NUR ---
Straight cath UA sent as ordered.
[2019-02-26 14:44] LABS: BILIRUBIN,URINE NEGATIVE (NEGATIVE); CLARITY,URINE SL CLOUDY (CLEAR); COLOR,URINE YELLOW (YELLOW); KETONES,URINE NEGATIVE (NEGATIVE); LEUKOCYTE ESTERASE ,URINE NEGATIVE (NEGATIVE); NITRITE,URINE NEGATIVE (NEGATIVE); PROTEIN,URINE DIPSTICK NEGATIVE (NEGATIVE); URINE UROBILINOGEN 0.2 mg/dL (0.2 - 1)
[2019-02-26 14:58] LABS: BACTERIA,URINE MODERATE /HPF; EPITHELIAL CELLS,URINE FEW /LPF; WBC,URINE (MAN) 0-5 /HPF (0-5)
[2019-02-26 15:36] VITALS: BP 124/59
--- NOTE | 2019-02-26 17:00 | NUR ---
Patient is up ambulating in room with collar in place. S/O at bedside.
[2019-02-26] MEDS ORDERED: ONDANSETRON HCL INJ 2MG/ML 2ML 2 MG/ML VIAL ONE (17:25)
[2019-02-26] MEDS ORDERED: ROCURONIUM BROMIDE 10 MG/ML 5ML VIAL ONE (17:25)
[2019-02-26] MEDS ORDERED: PROPOFOL IV EMULSION 10 MG/ML 20 ML VIAL ONE (17:25)
[2019-02-26] MEDS ORDERED: LIDOCAINE HCL 2% LOCAL INJ 5 ML SDV VIAL INJ ONE (17:25)
[2019-02-26] MEDS ORDERED: DEXAMETHASONE SOD PHOS INJ 4 MG/ML VIAL ONE (17:25)
[2019-02-26] MEDS ORDERED: SEVOFLURANE INHAL SOLN 250 ML PEN BTL ONE (17:25)
[2019-02-26] MEDS ORDERED: LIDOCAINE HCL 2% JELLY 5 ML TUBE ONE (17:25)
[2019-02-26] MEDS ORDERED: KETAMINE HCL INJ 50 MG/ML 10 ML VIAL ONE (17:42)
[2019-02-26] MEDS ORDERED: MIDAZOLAM HCL 2 MG/2 ML VIAL ONE (17:42)
[2019-02-26] MEDS: OXYBUTYNIN CHLORIDE 5 MG TAB PO SCH (17:50)
[2019-02-26] MEDS: CARISOPRODOL 350 MG TAB PO PRN (19:08)
[2019-02-26] MEDS: OXYCODONE/ACETAMINOPHEN 5-325 1 EACH TABLET PO PRN (19:08)
[2019-02-26 20:00] VITALS: BP 116/76
[2019-02-26] MEDS ORDERED: FAMOTIDINE 20 MG TAB PO SCH ×2 (21:00)
[2019-02-27] VITALS: BP 118/76
[2019-02-27] MEDS: LACTATED RINGER'S 1,000 ML IV SCH (04:45)
[2019-02-27 04:48] VITALS: BP 124/58
[2019-02-27] MEDS: OXYCODONE/ACETAMINOPHEN 5-325 1 EACH TABLET PO PRN (04:49)
[2019-02-27] MEDS: CARISOPRODOL 350 MG TAB PO PRN (04:50)
[2019-02-27] MEDS: CEFAZOLIN SOD 1 GM/NS 50ML 50 ML IV SCH (06:25)
--- NOTE | 2019-02-27 07:10 | NUR ---
patient endorsed to next shift for continuity of care.
--- NOTE | 2019-02-27 07:36 | Diagnostic Imaging Report ---
Exam: AP and lateral cervical spine History: Status post surgery Comparison: None available Findings: Fusion of C3, C4 and C5 with intervertebral bone grafts noted. There is a surgical drain lobe with fusion hardware. Prevertebral soft tissue prominence represents postoperative edema. Impression: Status post fusion of the cervical spine. Signed by: Dr. Kayden Gold DO on 02/27/2019 7:33 AM
[2019-02-27 08:21] VITALS: BP 117/56
[2019-02-27] MEDS ORDERED: PANTOPRAZOLE SOD 40 MG TABEC PO SCH ×2 (09:00)
[2019-02-27] MEDS: SUCRALFATE 1 GM/10 ML SUSP PO SCH (09:14)
[2019-02-27] MEDS: OXYBUTYNIN CHLORIDE 5 MG TAB PO SCH (09:14)
[2019-02-27] MEDS: GABAPENTIN 100 MG CAP PO SCH (09:14)
--- NOTE | 2019-02-27 09:42 | NUR ---
Drainage pulled at this time, site covered with gauze and tape. Pt tolerated well. Dressing removed as per orders. Collar in place. No c/o pain.
[2019-02-27] MEDS ORDERED: TYLENOL WITH C1 EACH PO (09:44)
== END 2019-02-27 10:39 | disposition home or self-care (01) ==
LOC: OR 07:10 → PACU V 10:20 → IMCU 11:31
PROVIDERS: ADMIT Neurological Surgery; ATTEND Neurological Surgery
DX: M50.021 Cervical disc disorder at C4-C5 level with myelopathy (principal); G47.33 Obstructive sleep apnea (adult) (pediatric); K21.9 Gastro-esophageal reflux disease without esophagitis; R13.10 Dysphagia, unspecified; Z87.440 Personal history of urinary (tract) infections; Z88.5 Allergy status to narcotic agent; Z88.8 Allergy status to other drugs, medicaments and biological substances; E78.5 Hyperlipidemia, unspecified; R12 Heartburn; H81.10 Benign paroxysmal vertigo, unspecified ear; E53.8 Deficiency of other specified B group vitamins; F17.210 Nicotine dependence, cigarettes, uncomplicated; Z01.810 Encounter for preprocedural cardiovascular examination; Z01.812 Encounter for preprocedural laboratory examination; Z01.811 Encounter for preprocedural respiratory examination
CPT/HCPCS: 20931; 22551; 22552; 22845; 36415; 71046; 72040; 77003; 80048; 81001; 85025; 85610; 85730; 86850; 86900; 87086; 88304; 88311; 93005; C1713 ×5; C1768; G0378 ×2; J0131; J0690 ×2; J1100; J1170; J2001 ×2; J2250; J2405; J2704; J2765; J7121; S0164; J3010

== ENCOUNTER → 2019-04-14 | Outpatient (CLI) | payer OTHER ==
[~2019-04-14] MED LIST changes: +TYLENOL WITH C1 EACH PO; +augmentin
--- NOTE | 2019-04-14 14:32 | Diagnostic Imaging Report ---
PROCEDURE: X-RAY MODIFIED BARIUM SWALLOW COMPARISON: None. INDICATION: Dysphagia Radiation Details: Fluoroscopy time: 1.9 minutes Cumulative dose: 6.09 mGy DISCUSSION: Fluoroscopic examination was performed in conjunction with speech pathology during swallowing a variety of thin and thick liquid consistencies. Provided images demonstrate no laryngeal penetration or aspiration. CONCLUSION: Modified barium swallow demonstrating no laryngeal penetration or aspiration. Please refer to the speech pathology report for further details. Signed by: Liliana Kennedy MD on 04/14/2019 2:29 PM
== END ==
LOC: DX 11:34
PROVIDERS: ATTEND Internal Medicine Gastroenterology
DX: Z98.890 Other specified postprocedural states (principal); R13.12 Dysphagia, oropharyngeal phase
CPT/HCPCS: 74230

== ENCOUNTER → 2019-07-31 | Day surgery (SDC) | payer OTHER ==
[~2019-07-31] MED LIST changes: +PROPOFOL IV EMULSION 10 MG/ML 50 ML VIAL ONE; +TUMS200 MG PO
[2019-07-31 17:10] VITALS: BP 117/57
--- NOTE | 2019-07-31 22:57 | Operative Report ---
DATE OF PROCEDURE: 07/31/2019 SURGEON: Nilo Buck MD PROCEDURE: EGD with biopsies and esophageal dilatation. INDICATION FOR PROCEDURE: Dysphagia. MEDICATIONS: The patient was done under MAC, please see anesthesiologist's note. PROCEDURE IN DETAIL: With the patient in left lateral decubitus position, a flexible fiberoptic Olympus gastroscope was introduced into the esophagus under direct visualization without any difficulty. There were some patchy erythema noted in distal esophagus. The scope was then advanced with ease into the stomach. Mucosa overlying the antrum and the body revealed some patchy erythema and low-grade to moderate edema, and biopsies were obtained and sent to stain for H pylori. The pylorus was intubated with ease and the scope was advanced all the way to the second portion of the duodenum. The scope was then withdrawn slowly. Mucosa overlying the proximal second portion and the duodenal bulb grossly appeared to be within normal limits. The scope was then withdrawn back into the stomach and retroflexed. Mucosa overlying the fundus and the cardia appeared to be within normal limits. The scope was then straightened out, it was subsequently withdrawn. The patient tolerated the procedure well. IMPRESSION: 1. Distal esophagitis, mild. 2. Esophagus dilated to size 54-[place] Wilson. 3. Gastritis, biopsied. Biopsies sent to stain for Helicobacter pylori. PLAN: Follow up histology. Continue Dexilant 60 mg one p.o. q.a.m. before meals. Add Carafate 1 g p.o. before meals t.i.d. and at bedtime. Nilo Buck MD [facility] [facility] [place] [place][id number] cc: Mendez Pinedo
== END | disposition home or self-care (01) ==
LOC: OR 13:30
PROVIDERS: ATTEND Internal Medicine Gastroenterology
DX: K20.8 Other esophagitis (principal); K29.60 Other gastritis without bleeding; K21.9 Gastro-esophageal reflux disease without esophagitis; K59.00 Constipation, unspecified; Z86.010 Personal history of colon polyps; G47.33 Obstructive sleep apnea (adult) (pediatric); E55.9 Vitamin D deficiency, unspecified; E53.8 Deficiency of other specified B group vitamins; Z88.6 Allergy status to analgesic agent; Z88.8 Allergy status to other drugs, medicaments and biological substances; Z01.810 Encounter for preprocedural cardiovascular examination; Z79.82 Long term (current) use of aspirin
CPT/HCPCS: 43239; 43450; 93005; J2704

== ENCOUNTER → 2020-12-23 | Outpatient (CLI) | payer OTHER ==
[~2020-12-23] MED LIST changes: +FIBER CHOICE PO; +IMIPRAMINE HCL25 MG PO; +MAGNESIUM PO; +MECLIZINE HCL12.5 MG PO; +NITROFURANTOIN100 MG PO; -PROPOFOL IV EMULSION 10 MG/ML 50 ML VIAL ONE; +TYLENOL EXTRA500 MG PO; +VITAMIN D250 MCG PO
== END ==
LOC: DX 12:08 → EDSTATUS 12-27 13:00
PROVIDERS: ATTEND Internal Medicine Gastroenterology
DX: Z01.812 Encounter for preprocedural laboratory examination (principal); Z01.818 Encounter for other preprocedural examination; Z20.822 Contact with and (suspected) exposure to COVID-19; R13.10 Dysphagia, unspecified
CPT/HCPCS: 93005; U0002

== ENCOUNTER → 2021-05-06 | Day surgery (SDC) | payer OTHER ==
[~2021-05-06] MED LIST changes: +FENTANYL CITRATE/PF 100MCG/2 ML INJ ONE; +HYOSCYAMINE SULFATE 0.5 MG/ML INJ ONE; +MIDAZOLAM HCL 2 MG/2 ML VIAL ONE; +VITAMIN D3 PO; +ZINC
[2021-05-06 14:40] VITALS: BP 127/71
== END | disposition home or self-care (01) ==
LOC: OR 11:05
PROVIDERS: ATTEND Internal Medicine Gastroenterology
DX: K29.50 Unspecified chronic gastritis without bleeding (principal); D12.4 Benign neoplasm of descending colon; K20.90 Esophagitis, unspecified without bleeding; K52.9 Noninfective gastroenteritis and colitis, unspecified; K31.89 Other diseases of stomach and duodenum; K44.9 Diaphragmatic hernia without obstruction or gangrene; K57.30 Diverticulosis of large intestine without perforation or abscess without bleeding; K64.8 Other hemorrhoids; Z88.6 Allergy status to analgesic agent; Z88.8 Allergy status to other drugs, medicaments and biological substances; Z01.810 Encounter for preprocedural cardiovascular examination; Z01.812 Encounter for preprocedural laboratory examination; Z20.822 Contact with and (suspected) exposure to COVID-19
CPT/HCPCS: 43239; 43450; 45380; 45385; 93005; C9113; J1980; J2250; J3010; U0002; 45384